=== PATIENT | male | born 1950 | race Caucasian/White ===

== ENCOUNTER 2018-06-17 12:03 | Emergency (ER) | payer MEDICARE ==
[2018-06-17] MEDS ORDERED: LIDOCAINE 1% INJ-PF (10 MG/ML) 30 ML SDV INJ ONE (12:25)
[2018-06-17] MEDS ORDERED: DIPH/PERTUSS(ACELL)/TETANUS VAC/PF 0.5 ML SYR (>=10YO) IM ONE (12:25)
--- NOTE | 2018-06-17 12:46 | ER Document Report ---
ED Wound - General Mode of Arrival: Ambulatory Information source: Patient TRAVEL OUTSIDE OF THE [place] IN LAST 30 DAYS: No <BERYL SOLORZANO - Last Filed: 06/17/18 13:18> <JUAN JOSE ALONSO - Last Filed: 06/17/18 13:54> - General Chief Complaint: Laceration Stated Complaint: CUT HAND Time Seen by Provider: 06/17/18 12:18 Notes: 68-year-old male who presents to the emergency department today with complaints of a laceration to his left thumb. Patient states he was opening up a [employer]a doll for his granddaughter with a [email or web address] knife and the knife slipped. Patient has brisk capillary refill distally and sensation is intact. (BERYL SOLORZANO) - Related Data Allergies/Adverse Reactions: No Known Drug Allergies Allergy (Verified 06/17/18 12:04) Past Medical History - General Information source: Patient - Social History Smoking Status: Never Smoker Cigarette use (# per day): No Frequency of alcohol use: Heavy - 1 quart of sangria daily Family History: Reviewed & Not Pertinent <BERYL SOLORZANO - Last Filed: 06/17/18 13:18> Review of Systems - Review of Systems Constitutional: No symptoms reported EENT: No symptoms reported Cardiovascular: No symptoms reported Respiratory: No symptoms reported Gastrointestinal: No symptoms reported Genitourinary: No symptoms reported Male Genitourinary: No symptoms reported Musculoskeletal: No symptoms reported Skin: See HPI, Other - laceration to left thumb Hematologic/Lymphatic: No symptoms reported Neurological/Psychological: No symptoms reported -: Yes All other systems reviewed and negative <BERYL SOLORZANO - Last Filed: 06/17/18 13:18> Physical Exam <BERYL SOLORZANO - Last Filed: 06/17/18 13:18> <JUAN JOSE ALONSO - Last Filed: 06/17/18 13:54> - Vital signs Vitals: Temp Pulse Resp BP Pulse Ox 98.5 F 75 16 181/104 H 96 06/17/18 12:10 06/17/18 12:10 06/17/18 12:10 06/17/18 12:10 06/17/18 12:10 - Notes Notes: PHYSICAL EXAM GENERAL: Alert, interacts well. No acute distress. HEAD: Normocephalic, atraumatic. EYES: Pupils equal, round, and reactive to light. Extraocular movements intact. ENT: Oral mucosa moist, tongue midline. NECK: Full range of motion. Supple. Trachea midline. LUNGS: No respiratory distress. EXTREMITIES: Moves all 4 extremities spontaneously. No edema, radial and dorsalis pedis pulses 2/4 bilaterally. No cyanosis. NEUROLOGICAL: Alert and oriented x3. Normal speech. PSYCH: Normal affect, normal mood. SKIN: Warm, dry, normal turgor. 2.2 linear laceration into the muscle, somewhat gaping over the left thenar eminence palmar aspect. Small amount of bleeding, nothing arterial. (BERYL SOLORZANO) Full range of motion, sensation intact, no numbness or tingling, no weakness, able to give thumbs up and okay sign without difficulty. (JUAN JOSE ALONSO) Course <JUAN JOSE ALONSO - Last Filed: 06/17/18 13:54> - Re-evaluation Re-evalutation: 06/17/18 13:50 Minimal laceration of muscle, no evidence of muscle weakness, no lacerations to tendons or ligaments, cleaned and approximated, placed in thumb spica splint simply to immobilize the thumb, discharged home. Placed on Augmentin. (JUAN JOSE ALONSO) - Vital Signs Vital signs: Temp Pulse Resp BP Pulse Ox 98.5 F 75 16 181/104 H 96 06/17/18 12:10 06/17/18 12:10 06/17/18 12:10 06/17/18 12:10 06/17/18 12:10 Procedures - Laceration/Wound Repair Left Thumb Time completed: 13:00 Wound's Depth, Shape: Into muscle, Linear Laceration pre-procedure: Sterile drapes applied, Shur-Clens applied Anesthetic type: 1% Lidocaine Wound explored: Clean Wound Repaired With: Sutures Suture Size/Type: 4:0, Ethilon Number of Sutures: 8 Post-procedure wound care: Sterile dressing applied, Splint applied Post-procedure NV exam normal: Yes Complications: No <BERYL SOLORZANO - Last Filed: 06/17/18 13:18> - Immobilization left hand Pre-Proc Neuro Vasc Exam: Normal Immobilizer type: Thumb spica Performed by: PCT Post-Proc Neuro Vasc Exam: Normal, Unchanged from pre-exam Alignment checked and good: Yes - Laceration/Wound Repair Left Thumb Wound length (cm): 2.2 Volume Anesthetic (mLs): 2 Wound Debrided: Minimal Layer Closure?: No <JUAN JOSE ALONSO - Last Filed: 06/17/18 13:54> - Immobilization left hand Notes: 06/17/18 13:52 Skin is well aligned. This is not for bony immobilization. It is for pr otection of the laceration. (JUAN JOSE ALONSO) Discharge <BERYL SOLORZANO - Last Filed: 06/17/18 13:18> <JUAN JOSE ALONSO - Last Filed: 06/17/18 13:54> - Discharge Clinical Impression: Laceration of left hand Qualifiers: Encounter type: initial encounter Foreign body presence: without foreign body Qualified Code(s): S61.412A - Laceration without foreign body of left hand, initial encounter Condition: Stable Disposition: HOME, SELF-CARE Additional Instructions: Laceration Care Your laceration has been sutured to keep the skin edges aligned during healing. The time of suture removal depends on the nature and location of your cut. Please follow the care instructions the doctor has outlined for you and return for further care, according to the schedule you've been given. Keep the wound and dressing clean. Unless you were told otherwise, you may shower daily, blotting the wound dry with a clean, unused towel. At other times, If the dressing gets wet or blood soaked, remove it and blot the wound dry, then reapply a new dressing. Unless you were instructed otherwise, dressings should be changed at least daily. If any signs of infection occur (swelling, redness, increasing tenderness, red streaks, tender lumps in the armpit or groin above the laceration, or fever), see the doctor immediately. Keep the splint on for the next 3 days except to clean your hand. The sutures should be removed in 7-10 days. Prescriptions: Amoxicillin/Potassium Clav [Augmentin 500-125 Tablet] 1 each PO TID #21 tablet Scribe Attestation: 06/17/18 13:53 I personally performed the services described in the documentation, reviewed and edited the documentation which was dictated to the scribe in my presence, and it accurately records my words and actions. (JUAN JOSE ALONSO) Scribe Documentation - Scribe Written by Scribe:: Medardo Webb, 06/17/2018 1314 acting as scribe for :: Rafa <BERYL SOLORZANO - Last Filed: 06/17/18 13:18>
[2018-06-17 14:04] VITALS: BP 155/96
== END 2018-06-17 14:03 | disposition home or self-care (01) ==
LOC: ER 12:03
PROC: 0HQGXZZ Repair Left Hand Skin, External Approach (ICD-10-PCS; principal; 2018-06-17)
DX: S61.012A Laceration without foreign body of left thumb without damage to nail, initial encounter (principal); W26.0XXA Contact with knife, initial encounter
CPT/HCPCS: 99282; 90471; 90715; 12001; J3490